=== PATIENT | female | born 1945 | race African-American/Black ===

== ENCOUNTER 2016-10-16 12:50 | Outpatient (CLI) ==
[2015-10-16 22:22] VITALS: BMI 25.7
--- NOTE | 2016-10-16 13:53 | DI ---
EXAM: Pelvis and bilateral hips HISTORY: Fall, pain COMPARISON: None TECHNIQUE: Single view pelvis and two views each right and left hip were performed FINDINGS: Sacroiliac joints intact. Sacral arcuate lines intact. Degenerative change in the spine . Mild narrowing right and left hip joint. Left femoral ORIF. Sclerosis of the right superior and inferior pubic ramus and right pubic symphysis may represent healing change from fractures that are possibly subacute. No acute fracture line visualized.Atherosclerosis. IMPRESSION: 1. Sclerosis of the right superior and inferior pubic ramus and right pubic symphysis may represent healing change from fractures that are possibly subacute. No acute fracture line visualized. Consid er correlation with CT. 2. Left femoral ORIF. 3. Mild osteoarthritis right and left hip.
== END 2016-10-16 12:51 | disposition home or self-care (01) ==
LOC: RAD 12:50
PROVIDERS: ATTEND Family Medicine
DX: M25.551 Pain in right hip (principal); M25.552 Pain in left hip; W19.XXXA Unspecified fall, initial encounter

== ENCOUNTER 2016-11-09 20:01 | Emergency (ER) ==
[2016-11-09 20:08] VITALS: BP 116/77; TEMP 100.2; BMI 21.9
[2016-11-09] MEDS ORDERED: LIDOCAINE 1 % AMP 5 ML (SUTURES) SQ STA (20:28)
[2016-11-09] MEDS ORDERED: CLEOCIN PO STA (21:04)
--- NOTE | 2016-11-09 21:07 | ED.PDOC ---
General ED Provider: Dr. DA ARCHULETA Chief Complaint: Bite Stated Complaint: pateint states she has notice a swelling of the right hand Time Seen by Physician: 20:40 Mode of Arrival: Walk-In Information Source: Patient, Family Exam Limitations: No limitations Primary Care Provider: MINH KAYE Nursing and Triage Documentation Reviewed and Agree: Yes Review of Systems - Review Of Systems Constitutional: Reports: No symptoms Skin: Reports: Lesions (Right hand ) All Other Systems: Reviewed and Negative Past Medical History - Past Medical History Previously Healthy: Yes Endocrine: Reports: Hyperthyroid Cardiovascular: Reports: Hypertension Respiratory: Reports: None Hematological: Reports: None Gastrointestinal: Reports: None Genitourinary: Reports: None Neuro/Psych: Reports: TIA, Depression Musculoskeletal: Reports: None 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) Last Menstrual Period: POST MENOPAUSAL - Surgical History General Surgical History: Reports: Back Surgery, Other (Tumor removed from the bladder) - Family History Family History: Reports: None - Social History Smoking Status: Former smoker Hx Substance Use: No Alcohol Screening: None Physical Exam - Physical Exam Appearance: Ill-appearing Ill-appearing: Mild Pain Distress: Moderate Skin: Warm, Dry Psychiatric: Anxious Procedures - Incision and Drainage Site: Right hand Instrument Used: 11 Blade I & D Procedure: Yes: Betadine Prep Lidocaine Used: Yes (5 mls ) Type of Drainage: Present: Pus, Blood Irrigated: Yes Progress: Tolerated well Critical Care Note - Critical Care Note Total Time (mins): 0 Course - Course Orders, Labs, Meds: Orders Category Date Time Status WOUND CULTURE Stat LAB 11/09/16 20:52 Completed Clindamycin HCl [Cleocin] MEDS 11/09/16 21:04 Discontinued 300 mg PO ONCE STA Lidocaine HCl/Pf [Lidocaine 1 % Amp 5 ml (Sutures)] MEDS 11/09/16 20:28 Discontinued 5 ml SQ ONCE STA Medications Discontinued Medications Generic Name Dose Route Start Last Admin Trade Name Freq PRN Reason Stop Dose Admin Clindamycin HCl 300 mg 11/09/16 21:04 11/09/16 21:10 Cleocin PO 11/09/16 21:05 300 mg ONCE STA Administration Lidocaine HCl 5 ml 11/09/16 20:28 11/09/16 20:44 Lidocaine 1 % Amp 5 Ml (Sutures) SQ 11/09/16 20:29 5 ml ONCE STA Administration Vital Signs: Temp Pulse Resp BP Pulse Ox 11/09/16 20:04 100.2 F H 106 H 18 116/77 99 Departure - Departure Time of Disposition: 21:05 Disposition: HOME SELF-CARE Discharge Problem: Abscess Instructions: Abscess Follow-up (ED), Abscess (ED) Condition: Stable Pt referred to PMD for follow-up: Yes (2 min ) Additional Instructions: Follow up with PCP in 2 days for packing changes. Take antibiotics as prescribed. Take Motrin or Tylenol as needed for pain Prescriptions: Clindamycin HCl [Cleocin] 300 mg PO Q8HR #60 cap Allergies/Adverse Reactions: Allergies sulfamethoxazole [From Bactrim] Adverse Reaction (Verified 11/09/16 20:09) trimethoprim [From Bactrim] Adverse Reaction (Verified 11/09/16 20:09) Home Medications: Ambulatory Orders Cholecalciferol (Vitamin D3) [Vitamin D] 2,000 units PO DAILY 10/17/15 Ergocalciferol (Vitamin D2) [Vitamin D2] 50,000 units PO WEEKLY 10/17/15 Famotidine [Pepcid] 20 mg PO QDAC 10/17/15 Gabapentin [Neurontin] 100 mg PO BID 10/17/15 Metoprolol Succinate [Toprol Xl] 50 mg PO DAILY 10/17/15 Pentoxifylline [Trental] 400 mg PO TID 10/17/15 Pravastatin Sodium [Pravachol] 20 mg PO BEDTIME 10/17/15 Hydrocodone Bit/Acetaminophen [[place] 7.5-325] 1 - 2 tab PO Q4HR PRN #35 tab Menthol/Zinc Oxide [Calmoseptine Ointment] 1 applic TP BID #1 oint 11/04/15 Naloxegol Oxalate [Movantik] 25 mg PO QDAC #30 tab 11/04/15 Polyethylene Glycol 3350 [Miralax] 17 gm PO DAILY #1 powd.pack 11/04/15 Clindamycin HCl [Cleocin] 300 mg PO Q8HR #60 cap 11/09/16 Disposition Discussed With: Patient
== END 2016-11-09 21:14 | disposition home or self-care (01) ==
LOC: ED 20:01
DX: L02.511 Cutaneous abscess of right hand (principal)
CPT/HCPCS: 87070; 87186; 99283

== ENCOUNTER 2016-11-13 18:53 | Emergency (ER) ==
[2016-11-13 18:58] VITALS: BP 125/79; TEMP 99.2; BMI 22.3
--- NOTE | 2016-11-13 19:11 | ED.PDOC ---
General ED Provider: Dr. TRAE REEVES Chief Complaint: Wound Check Stated Complaint: Patient came for the f/u with daughter, was seen in ER for the rt hand bite, the culture grow, MSSA. she is on clinda. no fever no drainage. Time Seen by Physician: 19:08 Mode of Arrival: Wheelchair Information Source: Patient Primary Care Provider: MINH KAYE Nursing and Triage Documentation Reviewed and Agree: Yes Skin Complaint Exam - Skin/Soft Tissue Complaint/Exam Symptoms Are: Still present Timing: Constant Initial Severity: Mild Current Severity: Mild Character: Reports: Redness, Raised, Painful Aggravating: Reports: Touch Alleviating: Reports: None Associated Signs and Symptoms: Denies: Fever, Chills, Itching, Drainage, Bruising, Tenderness, Red streaks, Joint swelling Related Surgical History: Reports: None Recent Exposure to Others w/Similar Symptoms: No Skin Findings: Present: Erythema, Wet ulceration Differential Diagnoses: Abscess, Cellulitis Review of Systems - Review Of Systems Constitutional: Reports: No symptoms Eyes: Reports: No symptoms Ears, Nose, Mouth, Throat: Reports: No symptoms Respiratory: Reports: No symptoms Cardiac: Reports: No symptoms GI: Reports: No symptoms : Reports: No symptoms Musculoskeletal: Reports: No symptoms Skin: Reports: No symptoms Neurological: Reports: No symptoms Endocrine: Reports: No symptoms Hematologic/Lymphatic: Reports: No symptoms All Other Systems: Reviewed and Negative Past Medical History - Past Medical History Previously Healthy: Yes Endocrine: Reports: Hyperthyroid Cardiovascular: Reports: Hypertension Respiratory: Reports: None Hematological: Reports: None Gastrointestinal: Reports: None Genitourinary: Reports: None Neuro/Psych: Reports: TIA, Depression Musculoskeletal: Reports: None 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) Last Menstrual Period: none - Surgical History General Surgical History: Reports: Back Surgery, Other (Tumor removed from the bladder) - Family History Family History: Reports: None - Social History Smoking Status: Former smoker Hx Substance Use: No Alcohol Screening: None Physical Exam - Physical Exam Appearance: Well-appearing, No pain distress, Well-nourished Eyes: HUBERT, EOMI, Conjunctiva clear ENT: Ears normal, Nose normal, Oropharynx normal Respiratory: Airway patent, Breath sounds clear, Breath sounds equal, Respirations nonlabored Cardiovascular: RRR, Pulses normal, No rub, No murmur GI/: Soft, Nontender, No masses, Bowel sounds normal, No Organomegaly Musculoskeletal: Normal strength, ROM intact, No edema, No calf tenderness Skin: Warm (rt hand dorsum, 2/3 cm open wound, healthy looking, can wigle fingers, ROM n), Dry, Normal color Neurological: Sensation intact, Motor intact, Reflexes intact, Cranial nerves intact, Alert, Oriented Psychiatric: Affect appropriate, Mood appropriate Critical Care Note - Critical Care Note Total Time (mins): 0 Course - Course Vital Signs: Temp Pulse Resp BP Pulse Ox 11/13/16 18:53 99.2 F 76 18 125/79 97 Departure - Departure Time of Disposition: 19:19 Disposition: HOME SELF-CARE Discharge Problem: Wound Instructions: Insect Bite or Sting (ED) Condition: Stable Pt referred to PMD for follow-up: Yes Additional Instructions: Yogurt daily Keep f/u If increased redness, f/u in 3-4 days for wound check Allergies/Adverse Reactions: Allergies sulfamethoxazole [From Bactrim] Adverse Reaction (Verified 11/13/16 18:57) trimethoprim [From Bactrim] Adverse Reaction (Verified 11/13/16 18:57) Home Medications: Ambulatory Orders Cholecalciferol (Vitamin D3) [Vitamin D] 2,000 units PO DAILY 10/17/15 Ergocalciferol (Vitamin D2) [Vitamin D2] 50,000 units PO WEEKLY 10/17/15 Famotidine [Pepcid] 20 mg PO QDAC 10/17/15 Gabapentin [Neurontin] 100 mg PO BID 10/17/15 Metoprolol Succinate [Toprol Xl] 50 mg PO DAILY 10/17/15 Pentoxifylline [Trental] 400 mg PO TID 10/17/15 Pravastatin Sodium [Pravachol] 20 mg PO BEDTIME 10/17/15 Hydrocodone Bit/Acetaminophen [[place] 7.5-325] 1 - 2 tab PO Q4HR PRN #35 tab Menthol/Zinc Oxide [Calmoseptine Ointment] 1 applic TP BID #1 oint 11/04/15 Naloxegol Oxalate [Movantik] 25 mg PO QDAC #30 tab 11/04/15 Polyethylene Glycol 3350 [Miralax] 17 gm PO DAILY #1 powd.pack 11/04/15 Clindamycin HCl [Cleocin] 300 mg PO Q8HR #60 cap 06/29/17 Disposition Discussed With: Patient, Family
== END 2016-11-13 19:25 | disposition home or self-care (01) ==
LOC: ED 18:53
DX: S61.401A Unspecified open wound of right hand, initial encounter (principal); Z79.899 Other long term (current) drug therapy
CPT/HCPCS: 99282

== ENCOUNTER 2017-05-30 14:52 | Outpatient (CLI) ==
--- NOTE | 2017-05-30 15:27 | DI ---
EXAM: Left knee, two-view HISTORY: Pain, gait deformity COMPARISON: None FINDINGS: Bones are demineralized. Moderate tricompartmental osteoarthritis. No joint effusion. L inear calcification superior to the patella may represent enthesopathy or chronic calcification in th e joint space. IMPERSSION: 1. No fracture or dislocation. 2. Moderate tricompartmental osteoarthritis.
--- NOTE | 2017-05-30 15:31 | DI ---
EXAM: Left ankle two views HISTORY: Gait difficulty. FINDINGS: Bones appear significantly demineralized. No fracture or dislocation. No significant arthr opathy. Soft tissue edema is seen diffusely. Vascular calcifications are noted. IMPRESSION: No acute fracture or dislocation.
--- NOTE | 2017-05-30 15:39 | DI ---
EXAM: Left lower leg. Two-view HISTORY: Gait difficulty, pain COMPARISON: None FINDINGS: Bones are demineralized. Osteoarthritis of the knee. No fracture or dislocation. No foc al soft tissue abnormality. Atherosclerotic vascular calcification. IMPERSSION: No fracture or dislocation.
== END 2017-05-30 14:53 | disposition home or self-care (01) ==
LOC: RAD 14:52
PROVIDERS: ATTEND Family Medicine
DX: R26.9 Unspecified abnormalities of gait and mobility (principal); M79.605 Pain in left leg; W19.XXXA Unspecified fall, initial encounter

== ENCOUNTER 2017-09-07 14:24 | Outpatient (CLI) | payer OTHER ==
--- NOTE | 2017-09-07 15:19 | DI ---
EXAM: Three views of the thoracic spine. History: Thoracic back pain. Findings: Osteopenia. Atherosclerotic vascular calcifications. Kyphoplasty at L2. Age indetermina te compression deformity at T12 with about 50% loss of height. No subluxation. Mild multilevel disc space narrowing. On the lateral view, question anterior lung nodule Impression: 1. Age indeterminate compression deformity of T12. 2. Question lung nodule. Recommend further evaluation with two views of the chest.
--- NOTE | 2017-09-07 15:20 | DI ---
EXAM: Three views of the lumbar spine. History: Lower back pain. Comparison: Thoracic spine radiograph 09/07/2017, lumbar spine radiograph 02/06/2013 Findings / impression: Osteopenia. Six lumbar-type vertebral bodies. Stable kyphoplasty at L2. No change in the chronic compression deformity at L4. Age indeterminate compression deformity at T12. Moderate to severe disc space narrowing at L6 - S1 n ot significantly changed. Partially visualized hardware within the left hip.
--- NOTE | 2017-09-07 15:28 | DI ---
EXAM: Three views of the sacrum and coccyx. History: Pelvic pain. Findings: Osteopenia. Evaluation of the sacrum is limited due to obscuration by bowel gas. Atheros clerotic vascular calcifications. Grossly intact hardware within the proximal left femur. Degenerati ve changes within the lower lumbar spine. There is angulation seen on the lateral view involving the sacrum at the level of S2. Impression: Question mid sacral fracture. Recommend further evaluation with CT.
== END 2017-09-07 14:25 | disposition home or self-care (01) ==
LOC: RAD 14:24
PROVIDERS: ATTEND Family Medicine
DX: M54.9 Dorsalgia, unspecified (principal); G89.29 Other chronic pain; M81.0 Age-related osteoporosis without current pathological fracture; Z87.81 Personal history of (healed) traumatic fracture

== ENCOUNTER 2017-09-28 14:27 | Inpatient (IN) | payer OTHER ==
[2017-09-28] MEDS ORDERED: DULCOLAX PO PRN (15:42)
[2017-09-28 16:27] VITALS: BMI 19.9
[2017-09-28] MEDS: SODIUM CHLORIDE 1,000 ML IV SCH (16:34)
[2017-09-28] MEDS: VANCOMYCIN 750 MG in SODIUM CHLORIDE 250 ML IV SCH (20:35)
[2017-09-28] MEDS: VITAMIN D PO SCH (20:36)
[2017-09-28] MEDS: PLAVIX PO SCH (20:36)
[2017-09-28] MEDS: NEURONTIN PO SCH (20:36)
[2017-09-28] MEDS: ZINC-220 PO SCH (20:36)
[2017-09-28] MEDS: NORCO 10-325 PO PRN (20:37)
[2017-09-28] MEDS: ASPIRIN EC PO SCH (20:37)
[2017-09-28] MEDS: VITAMIN C PO SCH (20:37)
[2017-09-28] MEDS: SILVADENE CREAM TP SCH (20:41)
[2017-09-29] MEDS: VITAMIN C PO SCH ×2 (08:31→20:41)
[2017-09-29] MEDS: VANCOMYCIN 750 MG in SODIUM CHLORIDE 250 ML IV SCH ×2 (08:31→20:43)
[2017-09-29] MEDS: ZINC-220 PO SCH ×2 (08:31→20:40)
[2017-09-29] MEDS: NEURONTIN PO SCH ×2 (08:32→20:37)
[2017-09-29] MEDS: SODIUM CHLORIDE 1,000 ML IV SCH (08:32)
[2017-09-29] MEDS: SILVADENE CREAM TP SCH ×2 (08:32→20:46)
[2017-09-29] MEDS: MEGACE PO SCH (08:32)
[2017-09-29] MEDS: LEVAQUIN 500 MG in PREMIX 100 ML D5W 1 BAG IV SCH (11:47)
[2017-09-29] MEDS: PLAVIX PO SCH (20:38)
[2017-09-29] MEDS: ASPIRIN EC PO SCH (20:38)
[2017-09-29] MEDS: VITAMIN D PO SCH (20:40)
[2017-09-29] MEDS: NORCO 10-325 PO PRN (21:32)
[2017-09-30] MEDS: SODIUM CHLORIDE 1,000 ML IV SCH (06:50)
[2017-09-30] MEDS: ZINC-220 PO SCH ×2 (09:09→20:44)
[2017-09-30] MEDS: MEGACE PO SCH (09:09)
[2017-09-30] MEDS: NEURONTIN PO SCH ×2 (09:09→20:44)
[2017-09-30] MEDS: VITAMIN C PO SCH ×2 (09:10→20:43)
[2017-09-30] MEDS: VANCOMYCIN 750 MG in SODIUM CHLORIDE 250 ML IV SCH ×2 (09:10→20:44)
[2017-09-30] MEDS: SILVADENE CREAM TP SCH ×2 (09:10→20:52)
[2017-09-30] MEDS: LEVAQUIN 500 MG in PREMIX 100 ML D5W 1 BAG IV SCH (11:08)
[2017-09-30] MEDS: VITAMIN D PO SCH (20:43)
[2017-09-30] MEDS: ASPIRIN EC PO SCH (20:43)
[2017-09-30] MEDS: PLAVIX PO SCH (20:44)
[2017-09-30] MEDS: NORCO 10-325 PO PRN (21:14)
[2017-10-01] MEDS: SODIUM CHLORIDE 1,000 ML IV SCH ×3 (01:11→18:43)
[2017-10-01] MEDS: NORCO 10-325 PO PRN (08:44)
[2017-10-01] MEDS: MEGACE PO SCH (08:44)
[2017-10-01] MEDS: VITAMIN C PO SCH ×2 (08:44→20:57)
[2017-10-01] MEDS: LEVAQUIN 500 MG in PREMIX 100 ML D5W 1 BAG IV SCH (08:44)
[2017-10-01] MEDS: NEURONTIN PO SCH ×2 (08:44→20:57)
[2017-10-01] MEDS: ZINC-220 PO SCH ×2 (08:44→20:57)
[2017-10-01] MEDS ORDERED: DRISDOL PO SCH (09:00)
[2017-10-01] MEDS: VANCOMYCIN 750 MG in SODIUM CHLORIDE 250 ML IV SCH ×2 (10:18→20:55)
[2017-10-01] MEDS: SILVADENE CREAM TP SCH ×2 (10:19→20:59)
--- NOTE | 2017-10-01 12:52 | RS.QUICKDC ---
Discharge from PT Date of Discharge: 09/28/17 Reason for Discharge: DC to swing bed. pt progressed with transferred sup to/ from sit CGA to min, sit to/from stand CGA to min x 1. pt amb 20ft with rwx in room CGA to min x 1. pt progressing slowly toward goals. pt progress limited due to compliance with therapy.
--- NOTE | 2017-10-01 12:58 | RS.OTCNOTE ---
OT Case Note Date of Note: 10/01/17 Title: Regarding swing bed OT evaluation Note: Occupational therapy evaluation not completed due to patient participation being limited. Pt is able to get to edge of bed herself and to stand up. Pt is not motivated to take care of herself or to complete her self care.
[2017-10-01] MEDS: ASPIRIN EC PO SCH (20:56)
[2017-10-01] MEDS: PLAVIX PO SCH (20:56)
[2017-10-01] MEDS: VITAMIN D PO SCH (20:57)
[2017-10-02] MEDS: LEVAQUIN 500 MG in PREMIX 100 ML D5W 1 BAG IV SCH (08:15)
[2017-10-02] MEDS: SILVADENE CREAM TP SCH ×2 (08:15→20:52)
[2017-10-02] MEDS: MEGACE PO SCH (08:16)
[2017-10-02] MEDS: ZINC-220 PO SCH ×2 (08:17→20:51)
[2017-10-02] MEDS: VITAMIN C PO SCH ×2 (08:17→20:51)
[2017-10-02] MEDS: NEURONTIN PO SCH ×2 (08:17→20:51)
[2017-10-02] MEDS: VANCOMYCIN 750 MG in SODIUM CHLORIDE 250 ML IV SCH ×2 (10:54→20:51)
[2017-10-02] MEDS: SODIUM CHLORIDE 1,000 ML IV SCH (15:21)
[2017-10-02] MEDS: VITAMIN D PO SCH (20:51)
[2017-10-02] MEDS: ASPIRIN EC PO SCH (20:51)
[2017-10-02] MEDS: PLAVIX PO SCH (20:51)
[2017-10-03] MEDS: SODIUM CHLORIDE 1,000 ML IV SCH ×3 (03:10→23:36)
[2017-10-03] MEDS: MEGACE PO SCH (08:34)
[2017-10-03] MEDS: ZINC-220 PO SCH ×2 (08:34→20:06)
[2017-10-03] MEDS: LEVAQUIN 500 MG in PREMIX 100 ML D5W 1 BAG IV SCH (08:34)
[2017-10-03] MEDS: VITAMIN C PO SCH ×2 (08:34→20:06)
[2017-10-03] MEDS: NEURONTIN PO SCH ×2 (08:34→20:06)
[2017-10-03] MEDS: SILVADENE CREAM TP SCH ×2 (08:35→20:06)
[2017-10-03] MEDS: VANCOMYCIN 750 MG in SODIUM CHLORIDE 250 ML IV SCH ×2 (09:38→20:06)
[2017-10-03] MEDS: VITAMIN D PO SCH (20:05)
[2017-10-03] MEDS: PLAVIX PO SCH (20:05)
[2017-10-03] MEDS: ASPIRIN EC PO SCH (20:05)
[2017-10-04] MEDS: ZINC-220 PO SCH ×2 (08:38→18:28)
[2017-10-04] MEDS: NEURONTIN PO SCH ×2 (08:38→20:09)
[2017-10-04] MEDS: VITAMIN C PO SCH ×2 (08:38→20:09)
[2017-10-04] MEDS: MEGACE PO SCH (08:38)
[2017-10-04] MEDS: SILVADENE CREAM TP SCH ×2 (08:39→20:08)
[2017-10-04] MEDS: VANCOMYCIN 750 MG in SODIUM CHLORIDE 250 ML IV SCH (08:39)
[2017-10-04] MEDS: LEVAQUIN 500 MG in PREMIX 100 ML D5W 1 BAG IV SCH (09:51)
--- NOTE | 2017-10-04 13:13 | PN ---
DATE OF SERVICE: 09/30/17 CHIEF COMPLAINT: "Sores on my back" BRIEF HISTORY OF PRESENT ILLNESS: She has many chronic medical problems. She has a lot of problems with back pain ; degenerative disc disease, degenerative joint disease and compression fractures. She had a recent increase in back pain and imagining eventually showed a likelihood for T12 new compression fracture. She has poor gate and ambition before this; this put her more in bed and chair. She developed urinary incontinence. They family brought to the office on 09/24/17 and she was found to have denuded lower back, buttocks and then to the posterior aspect of the legs; significant wound. We made her direct admitted and had a Meyers placed that kept her dry; we started her on an turning program and the nurses washed and kept the wounds dry. Unfortunately they did not significantly improved and grew pseudomonas and Methicillin resistant Staph; we started her on Vancomycin and Levaquin and she transitioned to the swing bed on 09/28/17. She feels better ; she says her wounds are less sore making it easier for her to move around. PHYSICAL EXAMINATION: V/S: Temperature 98.9, pulse 72, blood pressure 110/58, respirations 20. GENERAL: No obvious distress, pleasant INTEGUMENT: Continue granulation from the edges and midportions of the wounds mid lower back, distal across the buttocks and posterior thighs. There is no odor, no induration and the base skin is pink. CHEST: Kyphotic and clear, slightly diminished. CARDIOVASCULAR: S1 and S2 without murmur. Peripheral edema. GI: Protuberant due to positioning but nontender without organomegaly ASSESSMENT: # Large wound (back, buttock and posterior thigh) component decub, pressure and superficial cellulitis(pseudomonas and MRSA) # Gait declined-Acute # Urinary incontinence-Meyers # Meyers # Nutritional risk #Weight loss # Back pain # Constipation-Narcotic exacerbated PLAN: 1. Medications reviewed-same 2. Laboratories-none today to review; will be check less frequent and will primarily be Vancomycin monitoring 3. Imagine-none 4. Activity-encouraged and she has a PT consult 5. Wound Care continued 6. Code status-full 7. Discharge planning; she expects home 8. Diet-same with encouraged protein supplementation. STEVE
[2017-10-04] MEDS: SODIUM CHLORIDE 1,000 ML IV SCH ×2 (19:32→19:33)
[2017-10-04] MEDS: VITAMIN D PO SCH (20:09)
[2017-10-04] MEDS: ASPIRIN EC PO SCH (20:09)
[2017-10-04] MEDS: PLAVIX PO SCH (20:09)
[2017-10-04] MEDS ORDERED: DOXYCYCLINE HYCLATE PO SCH (21:00)
[2017-10-05] MEDS: LEVAQUIN PO SCH (05:56)
[2017-10-05] MEDS: ZINC-220 PO SCH ×2 (05:57→20:20)
[2017-10-05] MEDS: MEGACE PO SCH (09:50)
[2017-10-05] MEDS: DOXYCYCLINE HYCLATE PO SCH ×2 (09:51→18:43)
[2017-10-05] MEDS: VITAMIN C PO SCH ×2 (09:51→20:20)
[2017-10-05] MEDS: NEURONTIN PO SCH ×2 (09:51→20:20)
[2017-10-05] MEDS: SILVADENE CREAM TP SCH ×2 (16:24→20:21)
[2017-10-05] MEDS: VITAMIN D PO SCH (20:20)
[2017-10-05] MEDS: PLAVIX PO SCH (20:20)
[2017-10-05] MEDS: ASPIRIN EC PO SCH (20:21)
[2017-10-06] MEDS: NORCO 10-325 PO PRN (02:36)
[2017-10-06 05:25] VITALS: BP 101/59; TEMP 97.7
[2017-10-06] MEDS: LEVAQUIN PO SCH (06:19)
[2017-10-06] MEDS: DOXYCYCLINE HYCLATE PO SCH (06:19)
[2017-10-06] MEDS: MEGACE PO SCH (09:59)
[2017-10-06] MEDS: NEURONTIN PO SCH (09:59)
[2017-10-06] MEDS: ZINC-220 PO SCH (10:00)
[2017-10-06] MEDS: VITAMIN C PO SCH (10:00)
[2017-10-06] MEDS: SILVADENE CREAM TP SCH (10:01)
--- NOTE | 2017-10-09 14:21 | PN ---
DATE OF SERVICE: 10/02/17 CHIEF COMPLAINT: "Sores on my back." BRIEF HISTORY OF PRESENT ILLNESS: She has many chronic medical problems. She has a lot of problems with back pain ; degenerative disc disease, degenerative joint disease and compression fractures. She had a recent increase in back pain and imaging eventually showed a likelihood for T12 new compression fracture. She has poor gate and ambition before this; this put her more in bed and chair. She developed urinary incontinence. They family brought to the office on 09/24/17 and she was found to have denuded lower back, buttocks and then to the posterior aspect of the legs; significant wound. We made her direct admitted and had a Meyers placed that kept her dry; we started her on an turning program and the nurses washed and kept the wounds dry. Unfortunately they did not significantly improved and grew pseudomonas and Methicillin resistant Staph; we started her on Vancomycin and Levaquin and she transitioned to the swing bed on 09/28/17. She feels better ; she says her wounds are less sore making it easier for her to move around. INTERVAL EVENTS: She continues to have slowly improvement epithilealization of her posterior aspect wounds. With this there is less discomfort. She is turning more easily with better strength. She has done some limited walking with PT. She has improving appetite and eating a little better. PHYSICAL EXAMINATION: V/S: Temperature 97.9, pulse 80, BP 104/64, respirations 16 and this pattern has been stable. GENERAL: No obvious distress, pleasant. INTEGUMENT: Only a few areas of very superficial degranulation in the area of the wound; mid lower back into the buttocks and upper thighs. They are all dry with no drainage and no induration. CHEST: Kyphotic and auscultated clear; slightly diminished breath sounds. CARDIOVASCULAR: S1, S2 without murmur. No peripheral edema. GI: Soft. No rebound, guarding or mass. ASSESSMENT: # Large wound (back, buttock and posterior thigh) component decub, pressure and superficial cellulitis(pseudomonas and MRSA) # Gait declined-Acute # Urinary incontinence-Meyers # Meyers # Nutritional risk # Weight loss # Back pain # Constipation-Narcotic exacerbated PLAN: 1. Medicines reviewed - soon to wean. 2. Laboratories - asking for CBC and chemistries tomorrow. 3. Imaging none. 4. Activity - encouraged to work with therapy and improve to help for plans for discharge. 5. Wound care continued. 6. Code status full. 7. Discharge planning - she expects home; to review with family. 8. Diet encouraged and same. MTDD
--- NOTE | 2017-10-09 14:36 | PN ---
DATE OF SERVICE: 10/04/17 CHIEF COMPLAINT: "Sores on my back." BRIEF HISTORY OF PRESENT ILLNESS: She has many chronic medical problems. She has a lot of problems with back pain ; degenerative disc disease, degenerative joint disease and compression fractures. She had a recent increase in back pain and imaging eventually showed a likelihood for T12 new compression fracture. She has poor gate and ambition before this; this put her more in bed and chair. She developed urinary incontinence. They family brought to the office on 09/24/17 and she was found to have denuded lower back, buttocks and then to the posterior aspect of the legs; significant wound. We made her direct admitted and had a Meyers placed that kept her dry; we started her on an turning program and the nurses washed and kept the wounds dry. Unfortunately they did not significantly improved and grew pseudomonas and Methicillin resistant Staph; we started her on Vancomycin and Levaquin and she transitioned to the swing bed on 09/28/17. She feels better ; she says her wounds are less sore making it easier for her to move around. INTERVAL EVENTS: She continues to improve with her gait and strength. Her appetite has improved and she is therefore eating better. Her wounds continue to be epithelialized and there is no residual pain of the wounds. She continues with a little back pain. She stools at least every once or second day. Meyers was removed today and so far she has been dry. PHYSICAL EXAMINATION: V/S: Temperature 98.1, pulse 99, BP 117/57, respirations 18. GENERAL: No obvious distress, pleasant. INTEGUMENT: Complete epithelialization of the wounds previously mentioned. There is no open areas. There is no induration or tenderness. CHEST: Kyphotic and auscultated clear; slightly diminished breath sounds. CARDIOVASCULAR: S1, S2 without murmur. No peripheral edema. GI: Soft. No rebound, guarding or mass. LABORATORY: Showed stool for occult blood negative times one and two pending. It showed low transferrin. No Ferritin. Normal B12 and Folate with B12 at 372. Iron and total iron binding capacity was low at 49 and 182 respectively; iron sat was normal. White count 8.56 and hemoglobin 10.2. ASSESSMENT: # Large wound (back, buttock and posterior thigh) component decub, pressure and superficial cellulitis(pseudomonas and MRSA)- continues to markedly improve # Gait declined-Acute # Urinary incontinence-Meyers # Meyers # Nutritional risk # Weight loss # Back pain # Constipation-Narcotic exacerbated # Anemia # Iron deficiency - barely PLAN: 1. Medicines reviewed - we are stopping IV antibiotics and transitioning to Doxycycline and Levaquin. We are holding on giving her any iron additionally with the concern that it might cause some degree of increased constipation. 2. Laboratories - reviewed more recent; no others planned. 3. Imaging none. 4. Activity - encouraged at least through tomorrow morning before discharge. 5. Wound care now transitions rather to more moisturization and keeping dry. 6. Code status full. 7. Discharge planning - she expects home tomorrow. 8. Diet encouraged with protein supplementation and same. 9. She is advised that with the Meyers out today, she needs to maintain a dry aspect before we can consider sending her home without a Meyers. STEVE
--- NOTE | 2017-10-10 08:48 | PN ---
DATE OF SERVICE: 10/05/17 CHIEF COMPLAINT: "Sores on my back." BRIEF HISTORY OF PRESENT ILLNESS: Ms. Powell has many chronic medical problems. She has had a lot of problems with back pain; DDD/DJD and compression fractures. She recently had increase in back pain and imaging eventually showed likely T12 new compression. She had poor gait and ambition before this recent problem; this put her to staying in bed and chairs. She has developed urinary incontinence. Her family brought her to the office day of admit and her mid back/distal was denuded, draining, open in large confluent wound. We realized this was well beyond ability for home health and family to deal with. We made her a direct admit hoping she with farley , frequent turning and wound care could avoid worsening, surgery, clinitrons, etc. We also suspect this is going to result in some type of placement as the resolution of these wounds should take awhile. Since here, she has continued to receive cleansing of her wounds and applications of Silvadene, every two hour turning, (which she is not very compliant with) and a Farley catheter which is keeping the area dry. INTERVAL CHANGES: We took her Farley out and attempted to see if she could remain dry; she had incontinence last night. This morning we approached the nursing staff about straight cath and teaching the family; the patient refused all of this. She indicates that she can stay dry if she does have incontinence, her family can clean the bed even during the night. She is eating, stooling, drinking and voiding without any discomfort or diarrhea or dysuria. She has walked some in her room. Her back pain is better. PHYSICAL EXAMINATION: V/S: Temperature 99.1, pulse 90, BP 105/67, respiratory rate 16 GENERAL: No obvious distress, pleasant. INTEGUMENT: Complete epithelialization of the wounds previously mentioned. There is no open areas. There is no induration or tenderness. CHEST: Kyphotic and auscultated clear; slightly diminished breath sounds. CARDIOVASCULAR: S1, S2 without murmur. No peripheral edema. GI: Soft. No rebound, guarding or mass. LABS/X-RAYS: None new. ASSESSMENT: # Large wound (back, buttock and posterior thigh) component decub, pressure and superficial cellulitis(pseudomonas and MRSA)- continues to markedly improve # Gait declined-Acute, improved # Urinary incontinence-brief Farley treated, Farley discontinued # Farley - discontinued # Nutritional risk # Weight loss # Back pain # Constipation-Narcotic exacerbated # Anemia # Iron deficiency - barely PLAN: 1. Medications reviewed - same 2. Laboratories - none. 3. Imaging - none. 4. Activity; we want to see if she can stay dry tonight. The staff has been alerted to allow her to use a bedside commode. 5. Wound care, continue to transition from previous antibiotics to just warm moisturization and skin care. 6. Code status remains full. 7. Discharge planning - we are hoping that she is dry enough at night that maybe we can do so tomorrow. 8. Diet still encouraged with protein supplementation. MTDD
== END 2017-10-06 11:25 | disposition home or self-care (01) | DRG 593 ==
LOC: MEDSURG B 14:27
PROVIDERS: ADMIT Family Medicine; ATTEND Family Medicine
DX: L89.109 Pressure ulcer of unspecified part of back, unspecified stage (principal); L03.119 Cellulitis of unspecified part of limb; S22.089D Unspecified fracture of T11-T12 vertebra, subsequent encounter for fracture with routine healing; L89.309 Pressure ulcer of unspecified buttock, unspecified stage; L89.899 Pressure ulcer of other site, unspecified stage; R32 Unspecified urinary incontinence; R26.89 Other abnormalities of gait and mobility; R63.4 Abnormal weight loss; K59.09 Other constipation; L22 Diaper dermatitis; B95.62 Methicillin resistant Staphylococcus aureus infection as the cause of diseases classified elsewhere; B96.5 Pseudomonas (aeruginosa) (mallei) (pseudomallei) as the cause of diseases classified elsewhere; E11.9 Type 2 diabetes mellitus without complications; J44.9 Chronic obstructive pulmonary disease, unspecified; I83.90 Asymptomatic varicose veins of unspecified lower extremity; M47.9 Spondylosis, unspecified; R63.0 Anorexia; Z91.19 Patient's noncompliance with other medical treatment and regimen; Z16.11 Resistance to penicillins; Z79.02 Long term (current) use of antithrombotics/antiplatelets; Z79.899 Other long term (current) drug therapy
CPT/HCPCS: 36415; 80048; 80202; 82272; 82607; 82728; 82746; 83540; 83550; 84466; 85025; 85045; 97802

== ENCOUNTER 2018-03-20 11:33 | Outpatient (CLI) | payer OTHER ==
--- NOTE | 2018-03-21 08:14 | DI ---
EXAM: Three views of the lumbar spine. History: Lower back pain. Comparison: Lumbar spine radiograph 09/07/2017 Findings: Osteopenia. Large quantity colonic stool. Atherosclerotic vascular calcifications. New P artially visualized hardware within the proximal left femur. Suboptimal lateral views as patient was unable to tolerate positioning. Kyphoplasty again seen at L2. Chronic compression deformity again seen at L4. No definite acute fractures are seen. Impression: No definite acute fractures are seen but evaluation is limited due to patient tolerance. Recommend further evaluation with CT or MRI of the lumbar spine if symptoms persist.
--- NOTE | 2018-03-21 08:19 | DI ---
EXAM: Three views of the thoracic spine. History: Thoracic back pain. Comparison: Thoracic spine radiograph 09/07/2017 Findings: Very limited evaluation due to positioning and suboptimal lateral views as patient could no t tolerate osteopenia. There are several age indeterminate compression deformities within the thorac ic spine but difficult to compare to the prior study due to positioning. Kyphoplasty at L2. Impression: Limited evaluation with several age indeterminate compression deformities of the thoraci c spine. Recommend further evaluation with CT.
--- NOTE | 2018-03-21 08:34 | DI ---
EXAM: Two views of the left hip. History: Left hip pain. Comparison: Pelvic radiograph 10/16/2016 Findings: Osteopenia. Grossly intact hardware within the proximal left femur. No acute fracture or dislocation. Mild narrowing of the left hip joint with no significant osteophyte formation. Athero sclerotic vascular calcifications. Impression: 1. No acute osseous abnormality. 2. Mild arthritis of the left hip joint
--- NOTE | 2018-03-21 08:51 | DEXA ---
EXAM: Bone densitometry. History: Postmenopausal. Findings: Evaluation of the right hip reveals a total bone mineral density of 0.501 grams per centimeter square d with T-score of negative 4.0. T-score within the right femoral neck is negative 3.5. Impression: Osteoporosis of the right hip
== END 2018-03-20 11:34 | disposition home or self-care (01) ==
LOC: RAD 11:33
PROVIDERS: ATTEND Family Medicine
DX: Z12.31 Encounter for screening mammogram for malignant neoplasm of breast (principal); M81.0 Age-related osteoporosis without current pathological fracture; Z78.0 Asymptomatic menopausal state; M54.5 Low back pain; R26.9 Unspecified abnormalities of gait and mobility; M25.559 Pain in unspecified hip

== ENCOUNTER 2018-03-22 22:18 | Emergency (ER) | payer OTHER ==
[2018-03-22 22:29] VITALS: TEMP 98.6; BMI 19.3
--- NOTE | 2018-03-22 23:33 | CT ---
EXAM: CT head without contrast. HISTORY: Change in mental status. PROCEDURE: Contiguous axial CT images of the head without contrast with coronal and sagittal reforma ts. FINDINGS: There is diffuse cerebral atrophy. The ventricles and basal cisterns are normal in size an d configuration. No evidence of mass or midline shift. There is a mixed density right parietal subd ural hematoma measuring up to 1 cm transverse. There are chronic small vessel ischemic changes in th e white matter. No evidence of large vessel infarct. No skull fracture. The paranasal sinuses and mas toid air cells are normal in appearance. Impression: Mixed density right parietal subdural hematoma as described. Chronic small vessel ischemic changes. Diffuse cerebral atrophy. Critical result: I personally discussed Impression #1 with the patient's ER physician Dr. Argueta on 05/22/2017 at 11:27 p.m.
--- NOTE | 2018-03-22 23:35 | CT ---
Exam: CT thoracic spine without contrast History: Back pain Technique: [address] of the thoracic spine with multiplanar reformations FINDINGS: There is a mild right convexity thoracic scoliosis. Normal alignment in the AP direction. T12 wedge deformity with chronic features. Anterior height loss measuring roughly 10 mm. There is no retropulsion of. No central canal stenosis. No acute fracture lines. No suspicious bony lesion s. No immediate paravertebral soft tissue abnormalities. Impression: 1. Chronic T12 wedge deformity also seen on 09/07/2017. No acute abnormality of the thoracic spine.
--- NOTE | 2018-03-22 23:38 | CT ---
Exam: CT of the abdomen and pelvis without contrast History: Left flank pain Technique: [address] of the abdomen and pelvis without intravascular contrast FINDINGS: The lung bases are clear. No significant liver abnormality. The adrenals, pancreas and spl een are unremarkable. The stomach and hiatus are unremarkable.The gallbladder appears normal. Kidneys and proximal collecting system are unremarkable. Atherosclerotic calcification of the aorta with max imum infrarenal ectasia measuring 2.4 cm. The appendix is not seen. Bowel loops demonstrate normal c aliber. No inflamatory change seen in the mesentery or retroperitoneum. There is no ascites. Pelvic genitourinary structures appear normal. Pelvic bowel loops are unremarkable. No inflammatory c hange in the pelvic fat. No acute abnormality of the abdominal or pelvic skeleton. Left hip transfemo ral nail. Impression: 1. No inflammatory process, bowel or urinary obstruction. No acute findings of the abdomen or pelvi s.
--- NOTE | 2018-03-22 23:39 | CT ---
Exam: CT of the pelvis without contrast History: Left hip pain Technique: [address] of the pelvis without intravascular contrast FINDINGS: The pelvic ring is intact. The sacrum is intact. The femoral hips are intact. Prior lef t hip transfemoral nail. No ren-hardware fracture or evidence of loosening. Impression: No acute findings of the bony pelvis or femoral hips.
--- NOTE | 2018-03-22 23:39 | ED.PDOC ---
General ED Provider: Dr. DEL HUIZAR-ER Chief Complaint: Back Pain Stated Complaint: she is not acting right Time Seen by Physician: 22:25 Mode of Arrival: Ambulance Information Source: Patient, Family, EMT Exam Limitations: No limitations Primary Care Provider: MINH KAYE Nursing and Triage Documentation Reviewed and Agree: Yes Does patient meet sepsis criteria?: No System Inflammatory Response Syndrome: Not Applicable Sepsis Protocol: For patient's 13 years and over: Temp is 96.8 and below OR 101 and greater Pulse >90 BPM Resp >20/minute Acutely Altered Mental Status Are patient's symptoms suggestive of a new infection, such as: -Pneumonia -Skin, Soft Tissue -Endocarditis -UTI -Bone, Joint Infection -Implantable Device -Acute Abdominal Infection -Wound Infection -Meningitis -Blood Stream Catheter Infection -Unknown Neurological Complaint Exam - Altered Mental Status Complaint/Exam Current Mental Status: Confusion Last Known Well: yesterday Onset: Sudden Symptoms Are: Still present Timing: Constant Initial Severity: Mild Current Severity: Moderate Eye Deviation Present: No Character: Reports: Confusion Alleviating: Reports: None Associated Signs and Symptoms: Reports: Seizure. Denies: Dizziness, Weakness, Headache, Fever, Illness, Nuchal rigidity, Nausea, Vomiting, Recently depressed , Trauma Cardiac Risk Factors: Reports: Hypertension CVA Risk Factors: Reports: Hypertension Carotid Bruit Present: No Nystagmus Present: No Gag Reflex Present: Yes Meningeal Signs Positive: No Focal Weakness: Present: None Focal Sensory Loss: Present: None Gait: Unsteady Romberg Test Positive: No Babinski Sign: Negative Right, Negative Left Signs of Injury: Present: Normal findings Thrombolytics Considered: No Differential Diagnoses: Other Review of Systems - Review Of Systems Constitutional: Reports: No symptoms Eyes: Reports: No symptoms Ears, Nose, Mouth, Throat: Reports: No symptoms Respiratory: Reports: No symptoms Cardiac: Reports: No symptoms GI: Reports: No symptoms : Reports: No symptoms Musculoskeletal: Reports: Back pain Skin: Reports: No symptoms Neurological: Reports: Cognitive dysfunction Endocrine: Reports: No symptoms Hematologic/Lymphatic: Reports: No symptoms All Other Systems: Reviewed and Negative Past Medical History - Past Medical History Previously Healthy: Yes Endocrine: Reports: Hyperthyroid Cardiovascular: Reports: Hypertension Respiratory: Reports: None Hematological: Reports: None Gastrointestinal: Reports: None Genitourinary: Reports: None Neuro/Psych: Reports: TIA, Depression Musculoskeletal: Reports: None 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) Last Menstrual Period: none - Surgical History General Surgical History: Reports: Back Surgery, Other (Tumor removed from the bladder) - Family History Family History: Reports: None - Social History Smoking Status: Former smoker Hx Substance Use: No Alcohol Screening: None - Immunizations Tetanus Shot up to Date: Yes Physical Exam - Physical Exam Appearance: Well-appearing Eyes: HUBERT, EOMI, Conjunctiva clear ENT: Ears normal, Nose normal, Oropharynx normal Neck: Supple Respiratory: Airway patent Cardiovascular: RRR, Pulses normal, No rub, No murmur GI/: Soft, Nontender, No masses, Bowel sounds normal, No Organomegaly Musculoskeletal: Normal strength, ROM intact, No edema, No calf tenderness Skin: Warm, Dry, Normal color Neurological: Alert Psychiatric: Affect appropriate, Mood appropriate Interpretation - Radiology Interpretation Radiology Interpretation By: Radiologist Radiology Results: Positive Exam Interpreted: CT Scan - EKG Interpretation Time of EKG #1: 23:39 Rate: Tachy Rhythm: Sinus Ectopy: None [place]: NL ST Segment: Normal Interpretation: sinus tachy Critical Care Note - Critical Care Note Total Time (mins): 30 Course - Course Hematology/Chemistry: 03/22/18 23:15 03/22/18 23:15 Orders, Labs, Meds: Lab Review 03/22/18 03/22/18 23:15 23:15 WBC 14.63 H RBC 5.23 Hgb 14.9 Hct 45.1 MCV 86.2 MCH 28.5 MCHC 33.0 RDW Coeff of Romulo 13.7 Plt Count 238 Immature Gran % (Auto) 0.4 Neut % (Auto) 89.9 Lymph % (Auto) 3.2 L Catron % (Auto) 6.1 Eos % (Auto) 0.1 Baso % (Auto) 0.3 Immature Gran # (Auto) 0.1 Neut # (Auto) 13.2 H Lymph # (Auto) 0.5 L Catron # (Auto) 0.9 Eos # (Auto) 0.0 Baso # (Auto) 0.0 Sodium 138.6 Potassium 4.18 Chloride 102.8 Carbon Dioxide 24.9 Anion Gap 15.08 BUN 26.0 H Creatinine 0.70 Estimated GFR (MDRD) 99.00 BUN/Creatinine Ratio 37.14 Glucose 298.5 H Calcium 9.95 Total Bilirubin 0.64 AST 31.0 ALT 18.8 Alkaline Phosphatase 85.0 Total Protein 8.35 H Albumin 4.14 Globulin 4.21 Albumin/Globulin Ratio 0.98 Orders Category Date Time Status EKG-(ED ONLY) Stat CARDIO 03/22/18 22:35 Completed Straight [STRAIGHT CATH INSERTION] ONCE CARE 03/22/18 22:38 Active TRANSFER TO OUTSIDE FACILITY .TO [facility] 03/22/18 23:42 Active (JA [place]) WRITE TRANSFER/SBAR NOTE ONCE CARE 03/22/18 23:42 Active DISCHARGE ASSESSMENT ONCE DISCHARGE 03/22/18 23:42 Active WRITE DISCHARGE NOTE ONCE DISCHARGE 03/22/18 23:42 Active IV [ED IV/MEDIPORT/POWERPORT] .ONCE EMERGENCY 03/22/18 23:41 Active CBC W/ AUTO DIFF Stat LAB 03/22/18 23:15 Completed COMPREHENSIVE METABOLIC PANEL Stat LAB 03/22/18 23:15 Completed URINALYSIS C & S IF INDICATED Stat LAB 03/22/18 22:35 Uncollected 0.9 % Sodium Chloride [Saline Flush] MEDS 03/22/18 23:41 Ordered 1 syr IVF PRN PRN CT ABDOMEN/PELVIS WO CONTRAST Stat RADS 03/22/18 22:[address] HEAD W/O CONTRAST Stat RADS 03/22/18 22:[address] LUMBAR SPINE W/O CONTRAST Stat RADS 03/22/18 22:[address] PELVIS W/O CONTRAST Stat RADS 03/22/18 22:[address] THORACIC SPINE W/O CONTRAST Stat RADS 03/22/18 22:36 Completed Medications Generic Name Dose Route Start Last Admin Trade Name Freq PRN Reason Stop Dose Admin Sodium Chloride 1 syr 03/22/18 23:41 Saline Flush IVF PRN PRN To flush IV Vital Signs: Temp Pulse Resp BP Pulse Ox 03/22/18 22:22 98.6 F 120 H 22 146/94 H 96 Departure - Departure Time of Disposition: 23:40 Disposition: TSF SHORT-TRM HOSP Discharge Problem: Subdural hematoma Instructions: Subdural Hematoma (ED) Condition: Stable Pt referred to PMD for follow-up: Yes IPMP verified?: No Allergies/Adverse Reactions: Allergies sulfamethoxazole [From Bactrim] Adverse Reaction (Verified 03/22/18 23:38) trimethoprim [From Bactrim] Adverse Reaction (Verified 03/22/18 23:38) Home Medications: Ambulatory Orders Cholecalciferol (Vitamin D3) [Vitamin D] 2,000 units PO DAILY 10/17/15 Ergocalciferol (Vitamin D2) [Vitamin D2] 50,000 units PO WEEKLY 10/17/15 Gabapentin [Neurontin] 100 mg PO BID 10/17/15 Aspirin [Low Dose Aspirin EC] 81 mg PO BEDTIME 09/24/17 Bisacodyl [Dulcolax] 10 mg PO BEDTIME PRN 09/24/17 Clopidogrel Bisulfate [Clopidogrel] 75 mg PO BEDTIME 09/24/17 Ascorbic Acid [Vitamin C] 500 mg PO BID tablet 10/06/17 Hydrocodone Bit/Acetaminophen [Wall 10-325] 1 tab PO PRN PRN 03/22/18 Transfer Form Completed: Yes Disposition Discussed With: Patient, Family
--- NOTE | 2018-03-22 23:40 | CT ---
EXAM: CT of the lumbar spine without contrast. HISTORY: Back pain. PROCEDURE: Contiguous axial CT images of the lumbar spine without contrast with coronal and sagittal reformats. FINDINGS: Comparison made with prior exam of 09/07/2017. Redemonstrated is an L1 compression fracture which is unchanged in appearance containing methylmethacrylate. There is minimal buckling of the pos terior-superior margin of the L1 vertebral body extending approximately 2 mm into the spinal canal. No spinal stenosis. Redemonstrated is an L3 compression fracture which is unchanged in appearance. T here is a mild L4 compression fracture involving the superior endplate with approximately 20% loss of vertebral body height, age indeterminate. There is disc space narrowing at L5, S1. There are poste rior osteophytes at L5, S1. There is multilevel facet arthropathy. Impression: L4 compression fracture as described, age indeterminate. Chronic L1 and L3 compression fractures as described. Multilevel degenerative changes as described.
[2018-03-23 00:01] VITALS: BP 123/82
== END 2018-03-23 01:15 | disposition short-term general hospital (02) ==
LOC: ED 22:18
DX: I62.00 Nontraumatic subdural hemorrhage, unspecified (principal); R41.82 Altered mental status, unspecified; M54.9 Dorsalgia, unspecified; R56.9 Unspecified convulsions; I10 Essential (primary) hypertension; E05.90 Thyrotoxicosis, unspecified without thyrotoxic crisis or storm; Z86.73 Personal history of transient ischemic attack (TIA), and cerebral infarction without residual deficits; L89.109 Pressure ulcer of unspecified part of back, unspecified stage; L89.309 Pressure ulcer of unspecified buttock, unspecified stage; G89.29 Other chronic pain
CPT/HCPCS: 36415; 80053; 85025; 93005; 93010; 99285

== ENCOUNTER 2018-05-07 21:36 | Outpatient (CLI) | END 2018-05-07 22:02 | disposition short-term general hospital (02) | LOC: AMBL 21:36 | PROVIDERS: ATTEND Family Medicine | DX: K59.00 Constipation, unspecified (principal); K62.89 Other specified diseases of anus and rectum; M54.9 Dorsalgia, unspecified ==